=== PATIENT | male | born 1985 | race Two or more races ===

== ENCOUNTER 2024-11-01 14:22 | Outpatient (AMB) | payer SELFPAY ==
--- NOTE | 2024-11-01 14:25 | MHC.PC.OV ---
Vital Signs 11/01/24 14:35 Height 5 ft 9.5 in Weight 179 lb BMI 26.1 BP 115/72 Blood Pressure Location Rt brachial Pulse 76 Pulse Source Pulse Oximeter Temp 97.1 F Pulse Oximetry (%) 95 Intake Visit Reasons: follow up Intake Note: would like lab results Allergies No Known Allergies Allergy (Verified 11/01/24 14:32) [facility] Medical History Deb thyroiditis Physical exam (Primary Care) Vital Signs: Last Vital Signs Temp 97.1 F 11/01/24 14:35 Pulse 76 11/01/24 14:35 BP 115/72 11/01/24 14:35 Pulse Ox 95 11/01/24 14:35 BMI result Body Mass Index 26.1 Coding Level of Care Code New Pt Level 4 (02667) Complex EM visit Add On G2211 Diagnoses Deb thyroiditis E06.3 Assessment & Plan Assessment & Plan (1) Deb thyroiditis: Code(s): E06.3 - Autoimmune thyroiditis Category: Medical Plan: History of Present Illness The patient is a 38-year-old male 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 Recent laboratory analysis indicated a TSH level of 20, prompting independent dosage modification by the patient. Past management included vitamin D supplementation for deficiency, and depression treated with a reduced dose of citalopram. Hyperlipidemia is managed with rosuvastatin, and intermittent insomnia is addressed with occasional Ambien usage during shift manager transitions. 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 - Medication Self-management: Patient independently adjusted dosage of levothyroxine and citalopram. - Sleep Pattern: Occasionally uses Ambien, primarily around shift transitions. Review of Systems - Endocrine: Reports previous thyroid dysfunction via Deb's Thyroiditis. - Psychiatric: Reports depression, currently treated with medication adjustment. Physical Exam General: Cooperative and healthy appearing Nutritional Appearance: Well nourished Orientation/consciousness: Patient oriented x3 Limitations: No limitations Head: Normal to inspection General: Appearance normal, both eyes and all related structures Neck: Normal visual inspection Chest: Normal palpation of entire chest wall Respiratory: Normal respiratory effort Neurology: Patient oriented x3 Results - Labs: Thyroid-Stimulating Hormone (TSH) level of 20, normal T4 level reported. Plan Management focus includes reassessment of levothyroxine dosage in light of elevated TSH levels for Deb's Thyroiditis. Continuation of vitamin D3 supplementation for deficiency is essential. Depression appears stable with current citalopram dosage, and hyperlipidemia maintains control under rosuvastatin therapy. Insomnia, infrequently occurring, is managed appropriately with minimal use of Ambien. Consistent follow-up with relevant laboratory work is indicated. Patient was informed and verbally consented to the use of an ambient scribe for clinic note documentation during this visit. Discussion Notes The patient and I discussed his ongoing management of Deb's Thyroiditis, addressing the elevated TSH level with potential adjustments to levothyroxine dosage. We reviewed the current management of his vitamin D deficiency, depression treatment with citalopram, and hyperlipidemia with rosuvastatin. Usage norms and safety of Ambien for insomnia were also outlined. Emphasis was placed on the necessity of follow-up laboratory testing to assess treatment efficacy. The patient was reminded of the importance of continuing his prescribed medications and the benefit of regular appointments for monitoring. Patient Instructions - Continue taking prescribed medications, including levothyroxine, vitamin D3, citalopram, and rosuvastatin, as directed. - Use Ambien only as needed for sleep disturbances associated with shift transitions. - Follow up with the laboratory to check thyroid function and medication efficacy as planned. - Attend regular appointments to monitor health conditions and medication effects. - Report any changes in symptoms or concerns regarding current treatments promptly.
[2024-11-01 14:35] VITALS: BP 115/72; PULSE 76; TEMP 36.2; O2SAT 95; BMI 26.1
== END 2024-11-01 15:03 | disposition home or self-care (01) ==
LOC: HO.HMCSH 14:22
PROVIDERS: PCP Internal Medicine; Visit Provider Internal Medicine
DX: E06.3 Autoimmune thyroiditis (principal)

== ENCOUNTER → 2024-11-01 14:22 | Outpatient (BNVA) | payer SELFPAY | PROVIDERS: PCP Internal Medicine; Visit Provider Internal Medicine | DX: E06.3 Autoimmune thyroiditis (principal); Z79.899 Other long term (current) drug therapy | CPT/HCPCS: 99202 ==

== ENCOUNTER 2025-05-29 10:39 | Outpatient (AMB) | payer BC, SELFPAY ==
[2025-05-29 10:32] VITALS: BP 118/68; PULSE 56; RESP 14; TEMP 36.8; O2SAT 99; BMI 26.3
--- NOTE | 2025-05-29 10:32 | A.OFFPC_ITS ---
Vital Signs 05/29/25 10:32 Height 5 ft 9.5 in Weight 181 lb BMI 26.3 BP 118/68 Respiration 14 Pulse 56 Pulse Source Pulse Oximeter Temp 98.2 F Temp Source Temporal Artery Scan Pulse Oximetry (%) 99 Oxygen Delivery Method Room Air Intake Visit Reasons: Thyroid check Kitchen Helper Required: No Accompanied by: Self / Same As Patient Allergies No Known Allergies Allergy (Verified 05/29/25 10:33) Tobacco use date assessed: 05/29/25 Dental Screening Dental Screen Date: 05/29/25 Did you have a dental visit in the last 12 months?: Yes Did you have a dental problem in the last 6 months where you did not have access to dental care?: No Was dental information given to patient?: Patient has dentist [facility] Medical History Deb thyroiditis Family History (Updated 05/29/25 @ 10:34 by CE Donaldson) Father No problems noted. Mother No problems noted. Social History (Updated 05/29/25 @ 10:34 by CE Donaldson) Housing: House Alcohol intake: current Alcohol intake frequency: does not drink Patient Tobacco Use Status: Never used Tobacco service: No Current occupational status: employed Cognitive needs: No Hearing needs: No Vision needs: No Questionnaire PHQ-9 Over the last 2 weeks, how often have you been bothered by any of the following problems? 1. Little interest or pleasure in doing things: not at all 2. Feeling down, depressed, or hopeless: not at all 3. Trouble falling or staying asleep, or sleeping too much: not at all 4. Feeling tired or having little energy: not at all 5. Poor appetite or overeating: not at all 6. Feeling bad about yourself - or that you are a failure or have let yourself or your family down: not at all 7. Trouble concentrating on things, such as reading the newspaper or watching television: not at all 8. Moving or speaking so slowly that other people could have noticed. Or the opposite - being so fidgety or restless that you have been moving around a lot more than usual: not at all 9. Thoughts that you would be better off or of hurting yourself in some way: not at all Total score: 0 Source: Developed by Drs. Heriberto Moreno, Jose Marie and colleagues, with an educational pola from [employer]. Thrive Questionnaire Date Thrive assessed: 05/29/25 I am a: Patient What is your living situation today?: I have a steady place to live Within the past 12 months, did the food you bought not last and you didn't have the money to get more?: Never true Within the past 12 months, did you worry whether your food would run out before you got money to buy more?: Never true Do you have trouble paying for medicines?: No Do you have trouble getting transportation to medical appointments?: No Do you have trouble paying your heating and electricity bill?: No Do you have trouble taking care of your child, family member or friend?: No Do you have trouble with day-to-day activities such as bathing, preparing meals, shopping, managing finances, etc.?: No Are you currently unemployed and looking for a job?: No Are you interested in more education?: No Please select the resources that you would like help with: None THRIVE Score: 0 AUDIT C Alcohol Use Questionnaire (AUDIT-C) 1. How often do you have a drink containing alcohol?: Never 3. How often do you have six or more drinks on one occasion?: Never Total Score: 0 LILA-7 AMB Questionnaire LILA-7 Date LILA - 7 assessed: 05/29/25 Feeling nervous, anxious, or on edge: 0 = Not at all Not being able to stop or control worryin = Not at all Worrying too much about different things: 0 = Not at all Trouble relaxin = Not at all Being so restless that it is hard to sit still: 0 = Not at all Becoming easily annoyed or irritable: 0 = Not at all Feeling afraid as if something awful might happen: 0 = Not at all Total LILA-7 score (0-4 normal; 5-9 mild; 10-14 moderate; 15-21 severe): 0 Source: Developed by Drs. Heriberto Moreno, Jose Marie and colleagues, with an educational pola from [employer]. Physical exam (Primary Care) Vital Signs: Last Vital Signs Temp 98.2 F 05/29/25 10:32 Pulse 56 05/29/25 10:32 Resp 14 05/29/25 10:32 BP 118/68 05/29/25 10:32 Pulse Ox 99 05/29/25 10:32 Oxygen Delivery Method Room Air 05/29/25 10:32 BMI result Body Mass Index 26.3 Tobacco/Smoking Status: Tobacco use Status Tobacco use date assessed 05/29/25 05/29/25 10:35 Patient Tobacco Use Status Never used Tobacco 05/29/25 10:35 PHQ-9: PHQ-9 Score PHQ-9: Total score 0 05/29/25 10:48 Thrive Assessment: Date of Thrive Assessment Date Thrive assessed 05/29/25 05/29/25 10:35 Office Procedures Flu Questionnaire Does the patient have a severe egg allergy?: No Does the patient have severe life threatening allergies?: No Does the patient have a fever or illness today?: No Has the patient ever had Guillain-Whiting Syndrome?: No Has the patient ever had any past reaction to a flu shot?: No Immunizations Fluarix [id number] (PF) 45 mcg (15 mcg x 3)/0.5 mL IM syringe Performing Provider: Tyrese Cody MD [facility] Administered by: CE Donaldson on 05/29/25 10:48 Dose Route Admin Location Dispensed Lot Number Expiration Date NDC Housing Grant Analyst 0.5 mL IM Left Deltoid 0.5 mL [id number] 02/27/26 40490-903-14 [facility] VIS Given Date VIS Provided VIS Publication Date 05/29/25 Single Vaccine 24 Eligibility Eligibility Date Funding Source Not [facility] Eligible 05/29/25 Private Coding Level of Care Code Est Pt Level 4 (50421) Complex EM visit Add On G2211 Diagnoses Deb thyroiditis E06.3 Assessment & Plan Assessment & Plan (1) Deb thyroiditis: Code(s): E06.3 - Autoimmune thyroiditis Category: Medical Plan: BW revd. BW ordered again. Will adjust medications accordingly. Plan History of Present Illness - The patient is a 39-year-old male presenting with Deb's thyroiditis. - The patient was diagnosed with Deb's thyroiditis and treated with levothyroxine, with initial high TSH levels leading to a dosage increase to 150 mcg. - Recent TSH levels have improved to 5, indicating a positive response to the current treatment regimen. - The patient reports neuropathy symptoms, specifically burning sensations in the feet, which have persisted for six months. - Vitamin B12 supplementation has been initiated, resulting in a reduction of neuropathy symptoms. Social History - The patient engages in regular exercise and is currently taking creatine as a supplement for physical activity. Review of Systems - Endocrine: Reports history of Deb's thyroiditis. - Neurological: Reports burning sensations in the feet, suggestive of neuropathy, for six months. - Respiratory: Reports history of upper respiratory infections. Physical Exam General: Cooperative and healthy appearing Nutritional Appearance: Well nourished Orientation/consciousness: Patient oriented x3 Limitations: No limitations Head: Normal to inspection General: Appearance normal, both eyes and all related structures Neck: Normal visual inspection Chest: Normal palpation of entire chest wall Respiratory: N ormal respiratory effort Neurology: Patient oriented x3, reports burning sensation in feet, possibly neuropathy, especially in the morning. Results - Labs: TSH level improved to 5 as per recent testing. Plan - Continue levothyroxine 150 mcg and monitor TSH levels. - Maintain vitamin B12 supplementation for neuropathy management. - Continue current medications: rosuvastatin, citalopram, and vitamin D. - Administer influenza vaccination as part of preventative care. Discussion Notes During the visit, we discussed the management of Deb's thyroiditis, including the importance of maintaining the current levothyroxine dosage and monitoring TSH levels. We also addressed the neuropathy symptoms and the role of vitamin B12 supplementation in alleviating these symptoms. Preventative care measures, such as the influenza vaccination, were also emphasized. Patient Instructions - Continue taking levothyroxine as prescribed and follow up with blood tests to monitor thyroid levels. - Keep taking vitamin B12 supplements to help with neuropathy symptoms. - Stay on current medications: rosuvastatin, citalopram, and vitamin D. - Get the flu shot as part of your preventative care. Orders: Orders Lipid Panel Today E06.3 - Autoimmune thyroiditis Liver Panel Today E06.3 - Autoimmune thyroiditis Thyroid Stimulating Hormone Today E06.3 - Autoimmune thyroiditis Vitamin B12 and Folate Today E06.3 - Autoimmune thyroiditis Influenza [id number] Immunization Today Z23 - Encounter for immunization Basic Metabolic Panel Today E06.3 - Autoimmune thyroiditis Complete Blood Count no Diff Today E06.3 - Autoimmune thyroiditis
--- OUTSIDE RECORDS SUMMARY | 2025-05-29 11:58 | XMS_ITS | Encounter Summary ---
Author Organization [facility] Address [address] [address] Phone Care Team Providers Care Liquor Department Manager Name Role Phone Heriberto Hart DO Primary Care Provider Encounter Details Date Type Department Care Team (Latest Contact Info) Description 08/15/2021 Transcribe Orders Virtual Department [address] [place] [address] Heriberto Hart DO [address] [place] [address] Fever, unspecified fever cause (Primary Dx) Social History Tobacco Use Types Packs/Day Years Used Date Smoking Tobacco: Never Assessed Sex and Gender Information Value Date Recorded Sex Assigned at Not on file Legal Sex Male 1:20 PM EST Gender Identity Not on file Sexual Orientation Not on file documented as of this encounter Plan of Treatment Not on file documented as of this encounter Visit Diagnoses Diagnosis Fever, unspecified fever cause- Primary documented in this encounter Additional Health Concerns Infection Onset Date Last Indicated Resolved Time CoV-Risk 08/14/2021 08/15/2021 08/25/2021 1:22 AM EST documented as of this encounter Care Teams Liquor Department Manager Relationship Specialty Start Date End Date Heriberto Hart DO [address] [place] [address] PCP - General Internal Medicine 07/13/20 documented as of this encounter Additional Source Comments The information contained in this document represents components of the legal health record. It is not the complete legal health record.[facility]
--- OUTSIDE RECORDS SUMMARY | 2025-05-29 11:58 | XMS_ITS | Encounter Summary ---
Author Organization [facility] Address [address] [facility] [address] [place] [address] Phone Care Team Providers Care Frame Builder Name Role Phone Heriberto Hart DO Primary Care Provider [phone] Encounter Details Date Type Department Care Team (Latest Contact Info) Description 05/16/2021 Transcribe Orders [facility] Laboratory [address] [place] [address] Heribetro Hart DO [address] [place] [address] Acquired hypothyroidism (Primary Dx); Generalized anxiety disorder; Hyperlipidemia, unspecified hyperlipidemia type Social History Tobacco Use Types Packs/Day Years Used Date Smoking Tobacco: Never Assessed Sex and Gender Information Value Date Recorded Sex Assigned at Not on file Legal Sex Male 1:20 PM EST Gender Identity Not on file Sexual Orientation Not on file documented as of this encounter Plan of Treatment Not on file documented as of this encounter Results * (ABNORMAL) LFTs (hepatic panel) (05/16/2021 2:21 PM EDT) ALKALINE PHOSPHATASE 63 39 - 117 U/L [facility] TOTAL BILIRUBIN 1.4(H) 0.0 - 1.2 mg/dL [facility] DIRECT BILIRUBIN <0.2 0 - 0.3 mg/dL [facility] Bilirubin (Indirect) NOT CALCULATED 0 - 1.5 mg/dL [facility] AST 34 0 - 37 U/L [facility] ALT 65(H) 0 - 40 U/L [facility] TOTAL PROTEIN 7.4 6.5 - 8.0 g/dL [facility] ALBUMIN 4.9(H) 3.9 - 4.8 g/dL [facility] GLOBULIN 2.5 1 - 4.8 g/dL [facility] A/G Ratio 1.96 1.00 - 4.80 RATIO [facility] Blood 05/16/2021 2:21 PM EDT 05/16/2021 2:25 PM EDT Heriberto Hart DO LAB BLOOD ORDERABLES Final R esult [address] [address] * Basic metabolic panel (05/16/2021 2:21 PM EDT) SODIUM 140 133 - 146 mmol/L [facility] CHLORIDE 103 96 - 108 mmol/L [facility] POTASSIUM 3.9 3.3 - 5.1 mmol/L [facility] CO2 27 21 - 35 mmol/L [facility] BUN 16 6 - 19 mg/dL [facility] CREATININE 0.90 0.5 - 1.5 mg/dL [facility] GLUCOSE 83 70 - 99 mg/dL [facility] CALCIUM 10.1 8.4 - 10.3 mg/dL [facility] EGFR 109 >59 mL/min/1.7 3m2 [facility] Comment:Estimated glomerular filtration rate calculated using the CKD-EPI equation. ANION GAP 14 10 - 20 mmol/L [facility] Blood 05/16/2021 2:21 PM EDT 05/16/2021 2:25 PM EDT Heriberto Hart DO LAB BLOOD ORDERABLES Final R esult [address] [address] * CBC and differential (05/16/2021 2:21 PM EDT) WBC 5.70 4.00 - 11.00 K/uL [facility] RBC 5.04 4.23 - 5.82 M/uL [facility] HGB 15.8 13.4 - 17.5 g/dL [facility] HCT 46.2 37.0 - 51.0 % [facility] PLT 149 140 - 430 K/uL [facility] MCV 91.7 78.0 - 97.0 fL [facility] MCH 31.3 25.0 - 33.0 pg [facility] MCHC 34.2 32.0 - 36.0 g/dL [facility] RDW 12.3 11.0 - 15.0 % [facility] MPV 12.6 8.4 - 12.8 fl [facility] NRBC 0.00 0 /100 WBCs [facility] ABSOLUTE NRBC 0.00 0 K/uL [facility] DIFF METHOD Auto [facility] NEUTS 45.6 43.0 - 75.0 % [facility] LYMPHS 39.1 18.2 - 47.4 % [facility] MONOS 10.2 4.00 - 11.00 % [facility] EOS 3.5 0.0 - 8.0 % [facility] BASOS 1.2 0.0 - 2.0 % [facility] Granulocytes, immature (%) 0.4 0.0 - 0.9 % [facility] ABSOLUTE NEUTS 2.60 1.80 - 7.70 K/uL [facility] ABSOLUTE LYMPHS 2.23 1.00 - 3.10 K/uL [facility] ABSOLUTE MONOS 0.58 0.20 - 0.80 K/uL [facility] ABSOLUTE EOS 0.20 0.00 - 0.80 K/uL [facility] ABSOLUTE BASOS 0.07 0.00 - 0.09 K/uL [facility] Granulocytes, immature 0.02 0.00 - 0.05 K/uL [facility] Blood 05/16/2021 2:21 PM EDT 05/16/2021 2:25 PM EDT us Heriberto Hart DO LAB BLOOD ORDERABLES Final R esult [facility] [address] [place] [address] * Lipid panel (05/16/2021 2:21 PM EDT) HDL 32 mg/dL [facility] Comment: Interpretation <40 mg/dL: Low HDL cholesterol (major risk factor for CHD) Greater than or equal to 60 mg/dL: High HDL cholesterol ( negative risk factor for CHD) HDL - cholesterol is affected by a number of factors, e.g. smoking, excerise, hormones, sex and age. CHOLESTEROL 138 0 - 240 mg/dL [facility] TRIGLYCERIDES 135 30 - 160 mg/dL [facility] LDL 79 50 - 129 mg/dL [facility] Comment: LDL levels in terms of risk for coronary heart disease: <100 mg/dL: Optimal 100-129 mg/dL: Near or above optimal 130-159 mg/dL: Borderline high 160-189 mg/dL: High >190 mg/dL: Very High CARDIAC RISK RATIO 4.3 3.4 - 5.0 C [facility] Blood 05/16/2021 2:21 PM EDT 05/16/2021 2:25 PM EDT Heriberto Hart DO LAB BLOOD ORDERABLES Final R Inkerwangult Performing Organization Address [facility]/ZIP Co de Phone Number [address] [address] * (ABNORMAL) TSH (05/16/2021 2:21 PM EDT) TSH 5.56(H) 0.27 - 4.20 uIU/mL [facility] Blood 05/16/2021 2:21 PM EDT 05/16/2021 2:25 PM EDT Heriberto Hart DO LAB BLOOD ORDERABLES Final R esult [address] [address] documented in this encounter Visit Diagnoses Diagnosis Acquired hypothyroidism- Primary Unspecified hypothyroidism Generalized anxiety disorder Hyperlipidemia, unspecified hyperlipidemia type documented in this encounter Additional Health Concerns Infection Onset Date Last Indicated Resolved Time CoV-Risk 08/14/2021 08/15/2021 08/25/2021 1:22 AM EST documented as of this encounter Care Teams Frame Builder Relationship Specialty Start Date End Date Heriberto Hart DO [address] [place] [address] PCP - General Internal Medicine 07/13/20 documented as of this encounter Additional Source Comments The information contained in this document represents components of the legal health record. It is not the complete legal health record.[facility]
--- OUTSIDE RECORDS SUMMARY | 2025-05-29 11:58 | XMS_ITS | Clinical Summary ---
Author Organization [facility] Address [address] [place] [address] Phone Care Team Providers Care Puttying And Calking Supervisor Name Role Phone Heriberto Hart DO Primary Care Provider Social History Tobacco Use Types Packs/Day Years Used Date Smoking Tobacco: Never Assessed Education Answer Date Recorded Are you interested in more education? Not on ameya e 12/26/2022 Are you concerned about learning? Not on file 12/26/2022 No 12/26/2022 No 12/26/2022 Digital Access Answer Date Recorded No 01/27/2023 No 01/27/2023 Reliable internet access at home? Not on file 01/27/2023 Device with a working camera? Not on file Sex and Gender Information Value Date Recorded Sex Assigned at Not on file Legal Sex Male 1:20 PM EST Gender Identity Not on file Sexual Orientation Not on file Plan of Treatment Not on file Medical Devices Not on file Insurance [facility] EPO Member Subscriber Plan / Payer (Ef fective 2019-Present) Name:Gonzalo Fernandez Relation to Subscriber:Self Name:Gonzalo Fernandez Payer ID:[id number] ([facility]) Type:PPO Address: [address] [place], [place] [facility] PPO EPO Member Subscriber Plan / Payer (Ef fective 2019-Present) Name:Gonzalo Fernandez Relation to Subscriber:Self Name:Gonzalo Fernandez Payer ID:[id number] ([employer]) Type:PPO Address: [address] [place], [place] [facility] PPO EPO Member Subscriber Plan / Payer (Ef fective 2019-Present) Name:Gonzalo Fernandez Relation to Subscriber:Self Name:Gonzalo Fernandez Payer ID:[id number] ([employer]) Type:PPO Address: [address] [place], [place] [facility] PPO EPO [facility] PPO EPO [facility] PPO EPO [facility] PPO EPO [facility] PPO EPO [facility] PPO EPO Care Teams Puttying And Calking Supervisor Relationship Specialty Start Date End Date Heriberto Hart DO [address] [place] [phone] PCP - General Internal Medicine 07/13/20 Additional Source Comments The information contained in this document represents components of the legal health record. It is not the complete legal health record.[facility]
== END 2025-05-29 11:04 | disposition home or self-care (01) ==
LOC: HO.HMCSH 10:39
PROVIDERS: PCP Internal Medicine; Visit Provider Internal Medicine
DX: Z23 Encounter for immunization (principal); E06.3 Autoimmune thyroiditis

== ENCOUNTER 2025-05-29 10:39 | Outpatient (REF) | payer OTHER, SELFPAY ==
[2025-05-29 12:32] LABS: Hematocrit 47.5 % (42.0-52.0); Hemoglobin 16.1 g/dl (14.0-18.0); Mean Corpuscular HGB Conc 33.9 g/dl (31.0-36.0); Mean Corpuscular Hemoglobin 30.8 pg (27.0-33.0); Mean Corpuscular Volume 90.8 fL (80.0-98.0); NRBC Abs Auto 0.000 X10*3/uL (0.0-0.012); NRBC Pct Auto 0.0 /100WBC (0.0-0.2); Platelet Count 141 X10*3/uL (160-400); Red Blood Count 5.23 X10*6/uL (4.60-5.80); White Blood Count 6.3 X10*3/uL (4.8-10.8)
[2025-05-29 13:09] LABS: Alanine Aminotransferase 78 U/L (0-40); Albumin Level 4.8 g/dL (3.5-5.0); Alkaline Phosphatase 70 U/L (39-117); Anion Gap 8 (12-20); Aspartate Amino Transferase 30 U/L (5-37); Blood Urea Nitrogen 16 mg/dL (9-16); Calcium 9.4 mg/dL (8.4-10.2); Carbon Dioxide 30 mmol/L (22-29); Chloride 106 mmol/L (96-108); Cholesterol 142 mg/dL (<200); Estimated Glomerular Filt Rate > 60; HDL Cholesterol 28 mg/dL (>40); Potassium 4.4 mmol/L (3.3-5.1); Sodium 140 mmol/L (135-145); Total Protein 7.5 g/dL (6.5-8.0); Triglycerides 113 mg/dL (<150)
[2025-05-29 13:31] LABS: Folate 7.2 ng/mL (> or = 4.0); Vitamin B12 728 pg/mL (200-900)
[2025-05-29 13:32] LABS: Thyroid Stimulating Hormone 13.71 uIU/mL (0.32-4.0)
== END 2025-05-29 10:40 | disposition home or self-care (01) ==
LOC: HO.LAB 10:39
PROVIDERS: PCP Internal Medicine; Visit Provider Internal Medicine
DX: Z23 Encounter for immunization (principal); E06.3 Autoimmune thyroiditis
CPT/HCPCS: 36415; 80048; 80061; 80076; 82607; 82746; 84436; 84443; 85027; 90471; 90656; 96127